=== PATIENT | male | born 1950 | race Caucasian/White ===

== ENCOUNTER 2019-11-15 20:57 | Emergency (ER) | payer MEDICARE, OTHER, SELFPAY ==
[~2019-11-15] VITALS: Ht 177.8 cm; Wt 90.9 kg
--- NOTE | 2019-11-15 21:17 | NUR ---
PT TO ROOM 14 PER DORIS. PT WAS FOUND UNRESPONSIVE AT A RESIDENCE WHERE A DOMESTIC DISTURBANCE HAD HAPPENED. PT AROUSES TO STERNAL RUB, UNABLE TO GIVE ANY RELIABLE INFORMATION. EKG DONE. PT PLACED ON BP AND PULSE OX, GOWN PLACED AND BLANKET GIVEN. SIDE RAIL UP FOR PROTECTION. MD IN TO SPEAK TO PATIENT. PT GIVES MD A FALSE NAME, AND IS UNTRUTHFUL ON HIS ANSWERS. PT TELLS RN, "I'VE BEEN PISSING BLOOD FOR 4 WEEKS". RN INFORMS MD. WILL CONTINUE TO MONITOR PATIENT.
[2019-11-15 21:32] LABS: BASOPHILS # (AUTO) 0.04 x10^3/uL (0-0.1); BASOPHILS % (AUTO) 0 % (0-1); EOSINOPHILS # (AUTO) 0.48 x10^3/uL (0-0.4); EOSINOPHILS % (AUTO) 5 % (1-7); LYMPHOCYTES # (AUTO) 1.84 x10^3/uL (1-3.4); LYMPHOCYTES % (AUTO) 18 % (22-44); MD NO; MEAN CORPUSCULAR HEMOGLOBIN 30.3 pg (27.5-34.5); MEAN CORPUSCULAR HGB CONC 33.3 g/dL (33.2-36.2); MEAN CORPUSCULAR VOLUME 90.9 fL (81-97); MEAN PLATELET VOLUME 7.9 fL (7.4-10.4); MONOCYTES # (AUTO) 0.47 x10^3/uL (0.2-0.8); MONOCYTES % (AUTO) 5 % (2-9); NEUTROPHILS # (AUTO) 7.39 x10^3/uL (1.8-6.8); NEUTROPHILS % (AUTO) 72 % (42-75); PLATELET COUNT 266 x10^3/uL (130-400); RED BLOOD COUNT 4.25 x10^6/uL (4.38-5.82); RED CELL DISTRIBUTION WIDTH 13.6 % (9.4-14.8)
[2019-11-15 21:43] LABS: ALANINE AMINOTRANSFERASE 32 U/L (12-78); ALBUMIN 3.6 g/dL (3.4-5.0); ANION GAP 7 mmol/L (5-15); CALCIUM 8.1 mg/dL (8.5-10.1); CHLORIDE 113 mmol/L (98-107); CREATININE 1.06 mg/dL (0.7-1.3)
[2019-11-15 21:45] LABS: ALKALINE PHOSPHATASE 53 U/L (45-117); BILIRUBIN,TOTAL 0.1 mg/dL (0.2-1.0); TOTAL PROTEIN 7.5 g/dL (6.4-8.2)
[2019-11-15 21:47] LABS: SALICYLATE LEVEL < 1.7 mg/dL (2.8-20.0)
--- NOTE | 2019-11-15 21:58 | NUR ---
PT OXYGEN SATURATION DROPPED TO 79%, RN PLACED ON 3L NC AND O2 SAT INCREASED TO 97%. BUTTON RECLAIMER APPLIED. PT RESTING WITH WARM BLANKETS. WILL CONTINUE TO MONITOR
[2019-11-15 22:07] VITALS: BP 107/58
--- NOTE | 2019-11-15 22:52 | NUR ---
PT YELLING "HELP! HELP!". THIS RN INTO ROOM TO INQUIRE ON PTS EMERGENCY. PT STATES "I'M HUNGRY GET ME SOMETHING TO EAT". PT WAS INFORMED THE COFFEE CART IS CLOSED AT THIS TIME. PT STATES "WELL HOLD MY BED WHILE I GO GET SOMETHING TO EAT". PT WAS INFORMED WE CANNOT HOLD HIS BED AND IF HE WERE TO LEAVE HE WOULD BE LEAVING AMA AND THE BED WOULD NOT BE HELD. PT THEN REMOVES ALL HIS MONITORING EQUIPMENT. PT WAS ASKED IF HE WOULD LIKE US TO TEST HIS URINE TO FIND OUT WHY HE IS PEEING BLOOD. PT ANGRILLY REFUSED THIS OFFER. PT AMBULATED OUT OF ED WITH STEADY GAIT AND THEN URINATED OUTSIDE ER DOORS. NO BLOOD NOTED IN THIS URINE. PT CONTINUES TO AMBULATE AWAY FROM ED WITH STEADY GAIT. PT REFUSED ATTEMPTS TO COME BACK TO ROOM. PT REFUSED TO SIGN AMA.
== END 2019-11-15 22:57 | disposition left against medical advice (07) ==
LOC: ED 21:24
DX: F10.220 Alcohol dependence with intoxication, uncomplicated (principal); Y90.9 Presence of alcohol in blood, level not specified
CPT/HCPCS: 36415; 71045; 80053; 80307; 85025; 93005; 99285

== ENCOUNTER → 2020-06-22 | Outpatient (CLI) | payer MEDICARE ==
[~2020-06-22] MED LIST: OXYB10TA26 PO; TAMS-11 PO
== END | disposition home or self-care (01) ==
LOC: STAR 09:27
PROVIDERS: ATTEND Urology
DX: Z01.812 Encounter for preprocedural laboratory examination (principal); Z20.828 Contact with and (suspected) exposure to other viral communicable diseases; C67.9 Malignant neoplasm of bladder, unspecified
CPT/HCPCS: 36415; 87635; 93005

== ENCOUNTER 2020-06-26 12:17 | Day surgery (SDC) | payer MEDICARE ==
[~2020-06-26] VITALS: Ht 172.7 cm; Wt 93.0 kg
[2020-06-26] MEDS ORDERED: CHLORHEXIDINE 15 ML UDC MM STA (12:25)
[2020-06-26] MEDS ORDERED: CHLORHEXIDINE 15 ML UDC ONE (12:29)
[2020-06-26] MEDS ORDERED: LACTATED RINGERS 1,000 ML IV SCH (12:30)
[2020-06-26 12:37] VITALS: BP 147/88
[2020-06-26] MEDS ORDERED: FENTANYL PF 100 MCG/2ML ONE (14:05)
[2020-06-26] MEDS ORDERED: MEPERIDINE/PF 25MG/0.5ML IVPush PRN (14:30)
[2020-06-26] MEDS ORDERED: DIAZEPAM 5 MG/ML, 2ML IV PRN ×2 (14:30)
[2020-06-26] MEDS ORDERED: ALBUTEROL SULFATE 2.5 MG/3 ML NPPB PRN (14:30)
[2020-06-26] MEDS ORDERED: METOCLOPRAMIDE 5 MG/ML, 2ML IV PRN (14:30)
[2020-06-26] MEDS ORDERED: ONDANSETRON 2MG/ML, 2ML IVPush PRN (14:30)
[2020-06-26] MEDS ORDERED: HYDROmorphone 1 MG/ML, 1ML INJ IV PRN (14:30)
[2020-06-26] MEDS ORDERED: PROMETHAZINE 25 MG/ML, 1ML IV PRN (14:30)
[2020-06-26] MEDS ORDERED: LABETALOL 5MG/ML, 20ML IV PRN (14:30)
[2020-06-26] MEDS ORDERED: KETOROLAC 30 MG/1 ML IV PRN (14:30)
[2020-06-26] MEDS ORDERED: FENTANYL PF 100 MCG/2ML IV PRN (14:30)
[2020-06-26] MEDS ORDERED: OXYcodone 5 MG/5 ML ORAL.SOL UDC PO PRN (14:30)
[2020-06-26] MEDS ORDERED: hydrALAzine 20 MG/ML, 1ML IV PRN (14:30)
[2020-06-26] MEDS ORDERED: ROCURONIUM 10MG/ML,5ML ONE (15:17)
[2020-06-26] MEDS ORDERED: CEFAZOLIN 1,000 MG ONE (15:17)
[2020-06-26] MEDS ORDERED: SUGAMMADEX 200 MG/2 ML IVPush ONE (15:17)
[2020-06-26] MEDS ORDERED: PROPOFOL 10 MG/ML, 20ML ONE (15:17)
[2020-06-26] MEDS ORDERED: SUCCINYLCHOLINE 20 MG/ML, 10ML ONE (15:17)
[2020-06-26] MEDS ORDERED: ONDANSETRON 2MG/ML, 2ML ONE (15:17)
== END 2020-06-26 15:45 | disposition home or self-care (01) ==
LOC: OUT 12:17
PROVIDERS: ATTEND Urology
DX: C67.9 Malignant neoplasm of bladder, unspecified (principal); N32.89 Other specified disorders of bladder; N13.39 Other hydronephrosis; F17.220 Nicotine dependence, chewing tobacco, uncomplicated; R03.0 Elevated blood-pressure reading, without diagnosis of hypertension; Z79.899 Other long term (current) drug therapy; Z98.890 Other specified postprocedural states; Z72.89 Other problems related to lifestyle
CPT/HCPCS: 52204; 52214; 88305; J0330; J0690; J2405; J2704; J3010; J7120